=== PATIENT | female | born 1995 | race Caucasian/White ===

== ENCOUNTER 2024-10-08 16:45 | Emergency (ER) | payer BC, SELFPAY ==
[2024-10-08 16:47] VITALS: BP 153/88
--- NOTE | 2024-10-08 18:52 | ED.GENMED ---
History of Present Illness
General
Chief Complaint: Musculo-Skeletal Complaint
Source: patient
Exam Limitations: none
Time Seen by Provider: 10/08/24 18:35
Nursing documentation reviewed up to this point in time: agreed with
History of Present Illness
History of Present Illness:
Note:
CHIEF COMPLAINT(S)
Wrist pain
HISTORY OF PRESENT ILLNESS
The patient is a 29-year-old female with a past medical history of bipolar disorder presenting with wrist pain that began in late July. 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
overuse. Initially, the pain arose after lifting heavy objects and she managed it with ice and home remedies, but it did not improve. Approximately a week ago, she visited an urgent care clinic, where she received a steroid injection in the wrist,
which did not provide significant relief. The pain has been persistent, worsening over the last four weeks, especially in the past week, and today, she picked up her animal at home and noticed that the pain became acutely worse, causing difficulty
in making a fist and resulting in a sensation of clicking and feeling as if something is shifting in the wrist. She also notes paresthesia in the thumb and pointer finger at times. Occasionally the pain will shoot up the arm. No fevers or
systemic symptoms are reported. The pain is located toward the thumb side of the wrist. She reports occasional numbness in the index and middle fingers as well as the thumb.
EXTERNAL RECORDS REVIEWED
According to urgent care records, a steroid injection was administered to the wrist for pain management.
CHRONIC MEDICAL CONDITIONS SIGNIFICANTLY AFFECTING CARE
The patient denies any history of rheumatoid arthritis or other inflammatory conditions. There are no chronic medical conditions affecting care discussed.
PHYSICAL EXAM
- Nursing notes reviewed and vital signs reviewed.
General: Patient is well appearing and in no acute distress; non-toxic
Skin: Warm and dry, no rashes or lesions
Head: Normocephalic, atraumatic
Eyes: Sclera non-icteric. EOMs intact.
Cardiac: Regular rate
Peripheral Vascular: 2+ Radial and ulnar pulses
Pulm: Normal respiratory effort
Abdomen: No abdominal tenderness
Musculoskeletal: Full range of motion of bilateral wrist joints. Full range of motion of right wrist, tenderness palpation along the anterior aspect with no palpable bony deformity. Full range of motion of the right elbow joint with no tenderness
to right elbow or forearm. No swelling. Positive Tinel's sign.
Neuro: CN II-XII intact, no focal neurologic deficits.
Psychiatric: Appropriate mood and affect.
DIFFERENTIAL DIAGNOSIS
The Differential Diagnosis includes, in no particular order and is not limited to:
- Carpal Tunnel Syndrome
- Wrist Sprain
- Tenosynovitis
- De Quervains Tenosynovitis
- Osteoarthritis
- Rheumatoid Arthritis
- Tendonitis
- Ganglion Cyst
- Fracture
- Neuropathy
CHART REVIEW
- No prior ER physician documentation to review
- No prior external medical summaries to review
SUMMARY OF ENCOUNTER
The patient was seen in the emergency department for wrist pain that has been worsening over four weeks. A steroid injection at urgent care did not alleviate symptoms. The examination revealed limited motion due to pain with swelling and numbness in
specific fingers. The potential for carpal tunnel syndrome from overuse was considered.
PLAN
- Initiate treatment with anti-inflammatory medication and wrist splints.
- Assessment of the potential benefit of a Toradol (ketorolac) injection for pain relief.
- Await official X-ray results to rule out any fluid build-up or other complications.
- Provide education on carpal tunnel syndrome management and follow-up instructions.
INDEPENDENT REVIEW OF LABS AND INTERPRETATION OF TESTS
My independent interpretation of the X-ray revealed no acute fractures; however, waiting on official radiology report to confirm findings.
PATIENT EDUCATION AND COUNSELING
Discussed the possible diagnosis of carpal tunnel syndrome, caused potentially by overuse. Recommended wearing wrist splints, taking Medrol dose darin course, and follow-up for re-evaluation.
MEDICATION RECONCILIATION
Recommended administration of Toradol (ketorolac) injection for pain relief, pending patients consent.
MEDICAL DECISION MAKING
- Complexity of Data Reviewed: Chronic conditions affecting care were not identified. Differential diagnosis includes those listed.
- Data:
Category 1: An X-ray was ordered and reviewed independently.
Category 2: None applicable.
Category 3: Internal discussion regarding possible necessity for orthopedic consultation if symptoms persist.
29-year-old female presents emergency department today with concerns of right wrist pain. Is been going on for multiple months. Seem to worsen today after lifting her pet. She has no associated fever. No erythema or redness. She is able to
range the wrist. On exam, there is no swelling, there is tenderness to palpation anteriorly along the carpal ligament. She does have positive Tinel's sign. Suspect carpal tunnel syndrome. Will send Medrol Dosepak to pharmacy and recommend
splinting intermittently for the next few days, recommended follow-up with orthopedics. X-ray shows no acute fracture or dislocation. Low suspicion for septic arthritis considering full range of motion no fever no erythema. Patient stable for
discharge.
DIAGNOSIS
- Wrist Pain, M25.531
- Suspected Carpal Tunnel Syndrome, G56.00
Review of Systems
Review of Systems
All Other Systems: ROS reviewed and negative except as documented in HPI and ROS
Phy Exam
Physical Exam
Physical Exam:
see hpi
Course
Orders/Labs/Results
Orders:
Orders
10/08/24 16:53
Wrist, Right 3 Views [CR Wrist - Right Min 3 Views] Urgent
Comment:
Reason For Exam: pain injury
10/08/24 18:51
Ketorolac [Toradol] 30 mg IM NOW STA
10/08/24 20:09
[place] Wrist Right-Tx ONCE
Vital Signs
Initial and Last Documented VS:
Initial Vital Signs
Temp Pulse Resp BP Pulse Ox
98.4 F 77 15 153/88 97
10/08/24 16:47 10/08/24 16:47 10/08/24 16:47 10/08/24 16:47 10/08/24 16:47
Last Documented Vital Signs
Temp Pulse Resp BP Pulse Ox
98.4 F 77 15 127/80 99
10/08/24 16:47 10/08/24 20:48 10/08/24 16:47 10/08/24 20:48 10/08/24 20:48
*Pulse Oximetry
SaO2: 97
Oxygen Mode of Delivery: Room air
Patient hypoxic: no
*Critical Care Note
Total Time (30-74mins, 75-104mins- exclusive of procedures): Not Applicable
ED Attending Note
-
Portions of this chart may have been created with voice recognition software.� Occasional wrong word or��sound alike� substitutions may have occurred due to the inherent limitations of voice recognition software.
Discharge Plan
Departure
Patient Disposition: Home (Routine Discharge)
Date of Disposition: 10/08/24
Time of Disposition: 20:21
Patient with high blood pressure during this ER visit?: Yes
Condition: Good
Discharge Problem:
Carpal tunnel syndrome
Instructions: Carpal tunnel syndrome, Carpal Tunnel Exercises, BLOOD PRESSURE
Prescriptions:
New
methylprednisolone [Medrol (Darin)] 4 mg tablets,dose pack
See Rx Instructions .ROUTE .COMPLEX Qty: 21 0RF
Rx Instructions:
for 6 days
Referrals:
Elvia Randall CRNP [Family Provider, General]
Paul Trimble MD [Active, Orthopedics] - Call in 1-3 days for appt
Stand Alone Forms: Return to Work
Activity Restrictions/Additional Instructions:
Medrol Dosepak has been sent to your pharmacy. Please follow package instructions for dosing. Please wear wrist splint for the next few days. Please call attached number to schedule an appointment with orthopedics for follow-up. Please do not
take NSAIDs like meloxicam or Advil while taking the Medrol.
PLEASE RETURN TO THE ER SHOULD YOU DEVELOP INABILITY TO RANGE YOUR WRIST, LOSS OF SENSATION, INCREASING SWELLING, PALLOR, REDNESS, FEVERS OR CHILLS, OR ANY OTHER SIGNS OR SYMPTOMS WORRISOME TO YOU.
Interventions
Interventions:
*Risk Screen - Suicide Last Done: 10/08/24 16:47
*General Assessment Last Done: 10/08/24 19:03
*Neglect/Abuse Screening Last Done: 10/08/24 16:47
*ED- Fall Risk Assessment Last Done: 10/08/24 19:03
*ED COVID-19 Vaccine History Last Done: 10/08/24 19:03
*Nursing Disposition Last Done: 10/08/24 20:48
ED-Musculoskeletal Assessment Last Done: 10/08/24 20:48
Discharge Date and Time
Discharge Date/Time: 10/08/24 20:49
Print Language: MALTESE
[2024-10-08 19:06] VITALS: BP 122/87
[2024-10-08] MEDS: TORADOL 30 MG IM (19:08)
[2024-10-08 20:48] VITALS: BP 127/80
== END 2024-10-08 20:49 | disposition home or self-care (01) ==
LOC: EMR 16:45
PROVIDERS: EMERGENCY PHYSICIAN Emergency Medicine; FAMILY PHYSICIAN Nurse Practitioner Adult Health
DX: G56.01 Carpal tunnel syndrome, right upper limb (principal); R03.0 Elevated blood-pressure reading, without diagnosis of hypertension; F31.9 Bipolar disorder, unspecified; Z91.018 Allergy to other foods; Z91.048 Other nonmedicinal substance allergy status
CPT/HCPCS: 99284; 96372; 29125; 73110